=== PATIENT | female | born 1975 | race Caucasian/White ===

== ENCOUNTER 2017-11-22 07:41 | Day surgery (SDC) | payer OTHER ==
[~2017-11-22 07:41] MED LIST: WELLBUTRIN XL300 MG PO
== END 2017-11-22 13:13 | disposition home or self-care (01) ==
LOC: CIR.AMB 07:41
DX: M65.332 Trigger finger, left middle finger (principal)

== ENCOUNTER 2019-10-12 13:46 | Outpatient (CLI) | payer OTHER ==
[~2019-10-12 13:46] MED LIST changes: +METHOCARBAMOL750 MG PO
== END 2019-10-12 13:53 | disposition home or self-care (01) ==
LOC: SONOGRAMA 13:46
PROVIDERS: ATTEND Obstetrics & Gynecology
DX: N83.01 Follicular cyst of right ovary (principal); N83.02 Follicular cyst of left ovary

== ENCOUNTER 2022-01-19 05:20 | Day surgery (SDC) | payer OTHER ==
[~2022-01-19] VITALS: Ht 165.1 cm; Wt 59.4 kg
[~2022-01-19 05:20] MED LIST changes: +PROMETRIUM200 MG PO
== END 2022-01-19 11:10 | disposition home or self-care (01) ==
LOC: CIR.AMB 05:20
PROVIDERS: ATTEND Orthopaedic Surgery Hand Surgery
DX: M65.341 Trigger finger, right ring finger (principal); Z20.822 Contact with and (suspected) exposure to COVID-19